=== PATIENT | female | born 1945 | race African-American/Black ===

== ENCOUNTER 2017-03-09 15:48 | Emergency (ER) | payer BC ==
[~2017-03-09] VITALS: Ht 162.6 cm; Wt 95.3 kg
[2017-03-09] MEDS ORDERED: INSU100C SQ (16:00)
[2017-03-09] MEDS ORDERED: ASPI-482 PO (16:00)
[2017-03-09] MEDS ORDERED: INSU100I11 SQ (16:00)
[2017-03-09] MEDS ORDERED: INSU100I13 SQ (16:00)
[2017-03-09 18:40] LABS: BASO % 1 % (0-3); EOS % 3 % (0-3); HEMATOCRIT 35.2 % (36.0-47.0); HEMOGLOBIN 11.5 g/dL (12.0-15.5); LYMPH # 2.3 x10^3/uL (1.0-4.8); LYMPH % 35 % (24-48); MEAN CORPUSCULAR HEMOGLOBIN 31 pg (25-35); MEAN CORPUSCULAR HGB CONC 33 g/dL (31-37); MEAN CORPUSCULAR VOLUME 95 fL (79-100); MONO % 9 % (0-9); NEUT % 54 % (31-73); PLATELET COUNT 188 x10^3/uL (140-400); RED BLOOD COUNT 3.72 x10^6/uL (3.50-5.40); RED CELL DISTRIBUTION WIDTH 13.7 % (11.5-14.5); WHITE BLOOD COUNT 6.6 x10^3/uL (4.0-11.0)
[2017-03-09 18:50] LABS: CALCIUM 9.1 mg/dL (8.5-10.1); CREATININE 1.8 mg/dL (0.6-1.0); GFR 33.8; POTASSIUM 4.4 mmol/L (3.5-5.1)
[2017-03-09 18:52] VITALS: BP 224/107
--- NOTE | 2017-03-09 19:33 | PHYS DOC ---
Past Medical History Past Medical History: Diabetes-Type II, Hypertension, Other Additional Past Medical Histor: prolapsed bladder Past Surgical History: Cholecystectomy, Other Additional Past Surgical Histo: rt foot surgery,rt femur fx with shant Alcohol Use: None Drug Use: None Adult General Chief Complaint Chief Complaint: VAGINAL PROBLEM HPI HPI 71-year-old female who states she had an episode of vaginal bleeding today that she states was one episode noted earlier today. Patient denies any pain. She states she noticed it while she was urinating. She is being currently evaluated for a prolapsed bladder by her drop board man at . She currently states the bleeding has resolved. She denies any dysuria or hematuria. She denies any fever or chills. She denies any abdominal pain. She denies any nausea or vomiting. Review of Systems Review of Systems Constitutional: Denies fever or chills [] Eyes: Denies change in visual acuity, redness, or eye pain [] HENT: Denies nasal congestion or sore throat [] Respiratory: Denies cough or shortness of breath [] Cardiovascular: No additional information not addressed in HPI [] GI: Denies abdominal pain, nausea, vomiting, bloody stools or diarrhea [] : Denies dysuria or hematuria [] Musculoskeletal: Denies back pain or joint pain [] Integument: Denies rash or skin lesions [] Neurologic: Denies headache, focal weakness or sensory changes [] Endocrine: Denies polyuria or polydipsia [] Allergies Allergies Allergies Coded Allergies Type Severity Reaction Last Updated Verified No Known Drug Allergies 03/09/17 No Physical Exam Physical Exam Constitutional: Well developed, well nourished, no acute distress, non-toxic appearance. [] HENT: Normocephalic, atraumatic, bilateral external ears normal, oropharynx moist, no oral exudates, nose normal. [] Eyes: PERRLA, EOMI, conjunctiva normal, no discharge. [] Neck: Normal range of motion, no tenderness, supple, no stridor. [] Cardiovascular:Heart rate regular rhythm, no murmur [] Lungs & Thorax: Bilateral breath sounds clear to auscultation [] Abdomen: Bowel sounds normal, soft, no tenderness, no masses, no pulsatile masses. [] Pelvic exam: Exam revealed a prolapsed bladder but no obvious bleeding was seen. There is no lacerations or source of bleeding that could be elicited. Skin: Warm, dry, no erythema, no rash. [] Back: No tenderness, no CVA tenderness. [] Extremities: No tenderness, no cyanosis, no clubbing, ROM intact, no edema. [] Neurologic: Alert and oriented X 3, normal motor function, normal sensory function, no focal deficits noted. [] Psychologic: Affect normal, judgement normal, mood normal. [] Current Patient Data Vital Signs Vital Signs Date Time Temp Pulse Resp B/P Pulse Ox O2 Delivery O2 Flow Rate FiO2 03/09/17 18:52 76 224/107 98 03/09/17 16:00 98.6 16 Room Air 98.6 Lab Values Laboratory Tests Test 03/09/17 18:30 White Blood Count 6.6x10^3/uL (4.0-11.0) Red Blood Count 3.72x10^6/uL (3.50-5.40) Hemoglobin 11.5g/dL (12.0-15.5) L Hematocrit 35.2% (36.0-47.0) L Mean Corpuscular Volume 95fL (79-100) Mean Corpuscular Hemoglobin 31pg (25-35) Mean Corpuscular Hemoglobin Concent 33g/dL (31-37) Red Cell Distribution Width 13.7% (11.5-14.5) Platelet Count 188x10^3/uL (140-400) Neutrophils (%) (Auto) 54% (31-73) Lymphocytes (%) (Auto) 35% (24-48) Monocytes (%) (Auto) 9% (0-9) Eosinophils (%) (Auto) 3% (0-3) Basophils (%) (Auto) 1% (0-3) Neutrophils # (Auto) 3.5x10^3uL (1.8-7.7) Lymphocytes # (Auto) 2.3x10^3/uL (1.0-4.8) Monocytes # (Auto) 0.6x10^3/uL (0.0-1.1) Eosinophils # (Auto) 0.2x10^3/uL (0.0-0.7) Basophils # (Auto) 0.0x10^3/uL (0.0-0.2) Sodium Level 142mmol/L (136-145) Potassium Level 4.4mmol/L (3.5-5.1) Chloride Level 107mmol/L (98-107) Carbon Dioxide Level 25mmol/L (21-32) Anion Gap 10 (6-14) Blood Urea Nitrogen 36mg/dL (7-20) H Creatinine 1.8mg/dL (0.6-1.0) H Estimated GFR (Cockcroft-Gault) 33.8 Glucose Level 218mg/dL (70-99) H Calcium Level 9.1mg/dL (8.5-10.1) Laboratory Tests 03/09/17 18:30 Laboratory Tests 03/09/17 18:30 EKG EKG [] Radiology/Procedures Radiology/Procedures [] Course & Med Decision Making Course & Med Decision Making Pertinent Labs and Imaging studies reviewed. (See chart for details) 71-year-old female with abnormal uterine bleeding had a pelvic exam that did not reveal any acute abnormalities. Her laboratory workup was unremarkable. I' ll be discharging her home with close follow-up for her episode of bleeding with her drop board man in the next several days with strict instruction to return if the bleeding should worsen or she develops any dizziness or lightheadedness. She was very agreeable with this plan and discharged without incident. Dragon Disclaimer Dragon Disclaimer This electronic medical record was generated, in whole or in part, using a voice recognition dictation system. Departure Departure Impression: Primary Impression: Vaginal bleeding Disposition: 01 HOME, SELF-CARE Admitting Physician: Other Condition: STABLE Referrals: SEA EWING MD (PCP) Patient Instructions: Abnormal Uterine Bleeding Additional Instructions: Please follow up with your drop board man in the next 2-3 days for your bleeding. Return to the ER if you develop any worsening of your bleeding or develop any pain or shortness of breath. ANSELMO THIBODEAUX DO Mar 09, 2017 19:33
== END 2017-03-09 19:40 | disposition home or self-care (01) ==
LOC: ER 15:48
DX: N93.9 Abnormal uterine and vaginal bleeding, unspecified (principal); N81.10 Cystocele, unspecified; E11.9 Type 2 diabetes mellitus without complications; I10 Essential (primary) hypertension; Z90.49 Acquired absence of other specified parts of digestive tract
CPT/HCPCS: 36415; 80048; 85027; 99284

== ENCOUNTER → 2017-05-12 | Outpatient (CLI) | payer BC ==
[~2017-05-12] MED LIST: ASPI-482 PO; INSU100C SQ; INSU100I11 SQ; INSU100I13 SQ; LOSA25TA4 PO; METO-269 PO; PRAV40TA2 PO
[2017-05-12 15:18] LABS: BASO % 0 % (0-3); EOS % 2 % (0-3); HEMATOCRIT 33.1 % (36.0-47.0); HEMOGLOBIN 11.3 g/dL (12.0-15.5); LYMPH # 2.8 x10^3/uL (1.0-4.8); LYMPH % 34 % (24-48); MEAN CORPUSCULAR HEMOGLOBIN 31 pg (25-35); MEAN CORPUSCULAR HGB CONC 34 g/dL (31-37); MEAN CORPUSCULAR VOLUME 92 fL (79-100); MONO % 9 % (0-9); NEUT % 54 % (31-73); PLATELET COUNT 181 x10^3/uL (140-400); RED BLOOD COUNT 3.59 x10^6/uL (3.50-5.40); RED CELL DISTRIBUTION WIDTH 13.2 % (11.5-14.5); WHITE BLOOD COUNT 8.1 x10^3/uL (4.0-11.0)
[2017-05-12 15:59] LABS: ALBUMIN 3.8 g/dL (3.4-5.0); ALBUMIN/GLOBULIN RATIO 0.8 (1.0-1.7); CALCIUM 9.7 mg/dL (8.5-10.1); CREATININE 1.8 mg/dL (0.6-1.0); GFR 33.8; POTASSIUM 4.7 mmol/L (3.5-5.1); TOTAL BILIRUBIN 0.4 mg/dL (0.2-1.0); TOTAL PROTEIN 8.3 g/dL (6.4-8.2)
--- NOTE | 2017-05-12 16:18 | RAD ---
EXAM: CHEST 1 VIEW History: Preop COMPARISON: None available. TECHNIQUE: Single portable radiograph of the chest FINDINGS: The cardiac silhouette is unremarkable. The lungs are clear bilaterally. The costophrenic sulci are clear and well demarcated. Right upper quadrant abdomen surgical clips are identified. IMPRESSION: No radiographic evidence of an acute cardiopulmonary process.
--- NOTE | 2017-05-13 12:12 | EKG ---
[facility] [address] [place] [address] Test Date: 2017-05-12 Test Time: 15:26:13 Pat Name: IOANA LI Department: Room: Gender: F Tile Installer: TV : 1945 Requested By: CALI MANUEL Order Number: [id number] Reading MD: Measurements Intervals [place] Rate: 60 P: 35 MT: 160 QRS: -3 QRSD: 128 T: 64 QT: 436 QTc: 440 Interpretive Statements SINUS RHYTHM LEFTWARD AXIS NON SPECIFIC INTRAVENTRICULAR BLOCK ABNORMAL ECG RI6.01 No previous ECG available for comparison
== END | disposition home or self-care (01) ==
LOC: SURGPAT 14:55
PROVIDERS: ATTEND Obstetrics & Gynecology
DX: Z01.818 Encounter for other preprocedural examination (principal)
CPT/HCPCS: 36415; 71020; 80053; 83036; 85027; 93005

== ENCOUNTER 2017-06-22 05:49 | Observation (INO) | payer BC ==
[~2017-06-22] VITALS: Ht 167.6 cm; Wt 95.4 kg
[2017-06-22] VITALS (9 sets, daily range): BP systolic 149–172; BP diastolic 64–75
[2017-06-22] MEDS ORDERED: HYDROmorphone 2 MG/ML VIAL IV PRN (07:00)
[2017-06-22] MEDS ORDERED: MORPHINE SULFATE 2 MG/ML DISP.SYRIN. IV PRN ×2 (07:00→10:15)
[2017-06-22] MEDS ORDERED: fentaNYL PF VIAL 100 MCG/2 ML VIAL IV PRN ×2 (07:00)
[2017-06-22] MEDS ORDERED: LIDOCAINE 1% 1 ML SYRINGE. ID PRN (07:00)
[2017-06-22] MEDS ORDERED: IV RINGERS,LACTATED 1000ML 1,000 ML IV SCH (07:00)
[2017-06-22] MEDS ORDERED: ONDANSETRON PF 4 MG/2 ML VIAL. IV PRN ×2 (07:00→10:15)
[2017-06-22] MEDS ORDERED: PROCHLORPERAZINE 10 MG/2 ML VIAL. IV PRN (07:00)
[2017-06-22] MEDS ORDERED: LIDOCAINE 2% PF Vial for OR 5 ML VIAL. ONE (07:03)
[2017-06-22] MEDS ORDERED: DEXAMETHASONE SOD PHOS 20 MG/5 ML VIAL. ONE (07:04)
[2017-06-22] MEDS ORDERED: PROPOFOL 20 ML IV ONE (07:04)
[2017-06-22] MEDS ORDERED: ONDANSETRON PF 4 MG/2 ML VIAL. ONE (07:04)
[2017-06-22] MEDS ORDERED: FAMOTIDINE 20 MG/2 ML VIAL ONE (07:04)
[2017-06-22] MEDS ORDERED: KETOROLAC 60 MG/2 ML INJ FOR OR. ONE (07:04)
[2017-06-22] MEDS ORDERED: fentaNYL PF VIAL 100 MCG/2 ML VIAL ONE ×3 (07:05→10:11)
[2017-06-22] MEDS ORDERED: MIDAZOLAM HCL/PF 2 MG/2 ML VIAL. ONE (07:05)
[2017-06-22] MEDS ORDERED: ROCURONIUM 100 MG/10 ML VIAL. ONE (07:05)
[2017-06-22] MEDS ORDERED: BUPIVAC MPF-EPI 0.5%-1:200000 30 ML VIAL. ONE ×3 (07:38→07:43)
[2017-06-22] MEDS ORDERED: 0.9 % SODIUM CHLORIDE 50 ML VIAL. IJ ONE ×3 (07:38→09:05)
[2017-06-22 08:16] LABS: BASO % 0 % (0-3); EOS % 1 % (0-3); HEMATOCRIT 31.7 % (36.0-47.0); HEMOGLOBIN 10.5 g/dL (12.0-15.5); LYMPH # 1.8 x10^3/uL (1.0-4.8); LYMPH % 26 % (24-48); MEAN CORPUSCULAR HEMOGLOBIN 31 pg (25-35); MEAN CORPUSCULAR HGB CONC 33 g/dL (31-37); MEAN CORPUSCULAR VOLUME 95 fL (79-100); MONO % 8 % (0-9); NEUT % 64 % (31-73); PLATELET COUNT 137 x10^3/uL (140-400); RED BLOOD COUNT 3.34 x10^6/uL (3.50-5.40); RED CELL DISTRIBUTION WIDTH 13.4 % (11.5-14.5)
[2017-06-22 08:21] LABS: CALCIUM 8.5 mg/dL (8.5-10.1); CREATININE 1.5 mg/dL (0.6-1.0); GFR 41.7
[2017-06-22] MEDS ORDERED: LOSARTAN POTASSIUM 25 MG TABLET. PO SCH (09:00)
[2017-06-22] MEDS ORDERED: NEOSTIGMINE 10 MG/10 ML VIAL. ONE (09:06)
[2017-06-22] MEDS ORDERED: GLYCOPYRROLATE 1 MG/5 ML VIAL. ONE (09:06)
[2017-06-22] MEDS ORDERED: MAG HYDROX/ALUMINUM HYD/SIMETH 30 ML ORAL.SUSP PO PRN (10:15)
[2017-06-22] MEDS ORDERED: HYDROcodone/APAP 5/325MG 1 TAB TABLET PO PRN (10:15)
[2017-06-22] MEDS ORDERED: LACTULOSE 20 GM/30 ML SOLUTION. PO PRN (10:15)
[2017-06-22] MEDS ORDERED: CALCIUM CARBONATE 500 MG TAB.CHEW PO PRN (10:15)
[2017-06-22] MEDS ORDERED: 0.9 % SODIUM CHLORIDE 10 ML DISP.SYRIN. IV PRN (10:15)
[2017-06-22] MEDS ORDERED: diphenhydrAMINE 50 MG/ML VIAL IV PRN (10:15)
[2017-06-22] MEDS ORDERED: oxyCODONE/APAP 5/325 1 TAB TABLET PO PRN (10:15)
[2017-06-22] MEDS ORDERED: SIMETHICONE 80 MG TAB.CHEW PO PRN (10:15)
[2017-06-22] MEDS ORDERED: NALOXONE 0.4 MG/ML VIAL. IV PRN (10:15)
[2017-06-22] MEDS ORDERED: MAGNESIUM HYDROXIDE 2,400 MG/30 ML ORAL.SUSP. PO PRN (10:15)
[2017-06-22] MEDS ORDERED: diphenhydrAMINE HCL 25 MG CAPSULE PO PRN (10:15)
[2017-06-22] MEDS ORDERED: ZOLPIDEM 5 MG TABLET. PO PRN (10:15)
[2017-06-22] MEDS ORDERED: DESFLURANE > 120 MINUTES IH ONE (10:18)
--- NOTE | 2017-06-22 10:31 | PDOC ---
BRIEF OPERATIVE NOTE Date: Jun 22, 2017 Pre-Op Diagnosis complete pelvic organ prolapse, postmenopausal vaginal bleeding Post-Op Diagnosis same Procedure Performed LAVH/BSO/ Anterior & posterior repairs Surgeon Dr. Halle Whitaker Jewelry Setter Dr. Krupa Real Anesthesiologist Dr. Morales Anesthesia Type: General Blood Loss 50cc IV Fluid 1L Urine Output 275cc clear via srivastava catheter Specimens Obtained cervix, uterus, bilateral tubes and ovaries Findings complete pelvic organ prolapse, small normal appearing uterus, bilateral tubes and ovaries, no significant pelvic adhesive disease, some omental adhesions in RUQ where choley scar was Complications none OPerative Note [id number] HALLE WHITAKER MD Jun 22, 2017 10:31
[2017-06-22] MEDS: INSULIN ASPART 300 UNITS/3 ML INSULN.PEN SQ SCH (18:22)
[2017-06-22] MEDS ORDERED: INSULIN DETEMIR 300 UNITS/3 ML INSULN.PEN. SQ SCH (21:00)
[2017-06-22] MEDS ORDERED: METOPROLOL SUCC 24HR ER 100 MG TAB.ER.24H. PO SCH (21:00)
--- NOTE | 2017-06-22 23:53 | OP ---
DATE OF SURGERY: 06/22/2017 PREOPERATIVE DIAGNOSIS: Complete pelvic organ prolapse with postmenopausal bleeding. POSTOPERATIVE DIAGNOSIS: Complete pelvic organ prolapse with postmenopausal bleeding. PROCEDURES: Laparoscopic-assisted vaginal hysterectomy, bilateral salpingo-oophorectomy, anterior and posterior colporrhaphy. SURGEON: Cali Whitaker MD and Krupa Real MD ANESTHESIOLOGIST: Dr. Caputo. ANESTHESIA: General endotracheal. ESTIMATED BLOOD LOSS: 50 mL. URINE OUTPUT: 275 mL clear via Jett catheter. IV FLUIDS: 1 liter of crystalloid. SPECIMEN REMOVED: Cervix, uterus, bilateral tubes and ovaries and some anterior and posterior vaginal mucosa. FINDINGS: Complete pelvic organ prolapse with stage IV cystocele and uterine procidentia as well as a third-degree rectocele, but she had a normal small uterus, bilateral tubes and ovaries. No significant pelvic adhesive disease and some omental adhesions in the right upper quadrant where her open cholecystectomy scar was. COMPLICATIONS: None. DESCRIPTION OF PROCEDURE: This patient was taken to the operating room where general anesthesia was placed. The patient was placed in a dorsal lithotomy position in [facility]. The patient's abdomen and vagina were prepped and draped in the normal sterile fashion and a Jett catheter was inserted under sterile technique. After a time-out was performed, a single tooth tenaculum was placed on the anterior lip of the cervix. It was taking out of the vagina. A 10 mL of local was placed circumferentially around the cervix for both hemodissection and hemostatic purposes later. The Valtchev uterine manipulator was placed through the endocervical os, locked on the single tooth tenaculum and then it was pushed in the vagina. After this, all top gloves were discarded and changed and attention was turned to the abdomen. A small infraumbilical skin incision was made with the scalpel. A curved Nicole was used to dissect through the subcuticular layer to the fascia. The 5 mm Visiport was used to directly enter the abdominal cavity. Opening patient pressure was 2-3 mmHg. Carbon dioxide gas was used to then appropriately insufflate the abdominal cavity to maintain a pressure of 15 mmHg. The patient was placed in Trendelenburg position. Right and left lower quadrant 5 mm disposable Ethicon atraumatic ports were placed under direct visualization after transilluminating the abdomen, making a small incision and going through an area clear of any vessels. This was all done under direct visualization without difficulty. Initial inspection revealed the omental adhesions in the right upper quadrant, normal small uterus, bilateral tubes and ovaries. No significant pelvic adhesive disease, so the LigaSure Advance was used to cauterize and cut the left round ligament and it was cauterized and cut in a stepwise fashion, creating a window in the mesosalpinx, going down and making the bladder flap sharply anteriorly elevating the left tube and ovary, finding the ureter coursing low, staying high under the ovary on the infundibulopelvic ligament, cauterizing and cutting it as well and going down and getting the uterine vessels on the left side after making sure the bladder was down. This was done exactly the same on the right first starting at the round ligament, cauterizing and cutting it, creating that window in the mesosalpinx, going down and further meeting that bladder flap and making sure it was down. All the while using the Valtchev to make sure the uterus was pushed in an up and not letting it come out vaginally. Again, elevating the right tube and ovary finding the ureter coursing low and watching it peristalsing, staying high on the infundibulopelvic ligament, taking the tubes and ovaries. Again, going down skeletonizing and getting the uterine vessels on this side as well. Then, crossing contralaterally and staying hugging the cervix, going vertical, going through the cardinal and broad ligaments down to the level of the uterosacral ligaments bilaterally. Once this was done, all instruments were removed from the abdomen and attention was turned vaginally. The single tooth and Valtchev were removed. A short-weighted speculum was placed in the patient's vagina. Thyroid Johana clamps were placed on the anterior and posterior lips of the cervix respectively and a scalpel was used to make a circumferential incision in the cervix. An open Ray-Diego 4 x 4 was used to gently push up the anterior bladder peritoneum and the anterior cul-de-sac was bluntly and sharply entered. Once this was done, the 4 x 4 was removed and the curved Nhung was placed in the anterior cul-de-sac. The cervix was elevated and the posterior cul-de-sac was sharply entered with the Lane scissors and pickups with teeth. Once this was done, a #0 Vicryl suture was used to secure the posterior peritoneum to the vaginal cuff and it was tagged with a curved Nicole clamp, the needle was cut and passed off and it was tagged. The short weighted speculum was removed and replaced with the long-weighted Cee speculum. Curved Kayce clamps x 2 were placed on the patient's left uterosacral ligament. They were doubly clamped with curved Heaneys, cut with Lane scissors and suture ligated x 2 with #0 Vicryl. The second one was taken through the vaginal cuff securing the uterosacral ligament to the vaginal cuff and was tagged with a straight Nicole clamp and the needle was cut and passed off. This was done exactly the same on the patient's right side, double clamping the uterosacrals with curved Heaneys, cutting with Lane scissors and suture ligating x 2 with #0 Vicryl, again taking the second one through the vaginal cuff securing uterosacral ligament to vaginal cuff, tying it, tagging it with a straight Nicole clamp and cutting the needle off. At this point, the remaining pedicle could easily be delineated with my finger. The vaginal LigaSure Max was used to cauterize the remaining pedicle on both sides. Cervix, uterus, bilateral tubes and ovaries were delivered in total and passed off for permanent pathology. The anterior bladder peritoneum was grasped with an Allis. The sponge stick was used to examine all the pedicles and 2-0 Vicryl was taken through the anterior bladder peritoneum, left uterosacral ligament, posterior peritoneum and right uterosacral ligament, thus closing the peritoneum in a pursestring like fashion. Once this was done, both right and left uterosacral tags were clipped. The posterior curved tag on the cuff was the only thing left. At this point, Allis clamps were placed on the anterior defect and 3 parts of injectable saline to 1 part, 0.5% Marcaine was used so, 150 mL of injectable saline to 50 mL of Marcaine was used in a dilute solution, I believe about 60 mL were used on the anterior defect. Metzenbaums were then used to open up the anterior defect with placing Allis along both sides and then sharply and bluntly using the Metzenbaum scissors to take it down at the edge and then an open Ray-Diego 4 x 4 was used to gently push up the anterior defect from the vaginal mucosa, once the edges were trimmed and the defect was released. The anterior defect reduced very nicely. A series of 10-12 interrupted sutures of 2-0 Vicryl was used to reduce the anterior defect first time just tagging them and we are using Kellys and then going back and tying them in order and using the back end of a smooth pickup just blunt and to reduce the defect and tying them to reduce the anterior defect. Large amounts of the vaginal mucosa were trimmed off on both sides with the Metzenbaum scissors and the defect was closed in an anterior to posterior running locked fashion with a 2-0 Vicryl in a running locked fashion and then the cuff was closed as well down to that posterior tag. Once this was all done and it was hemostatic, Kochers were placed at 4 o'clock and 7 o'clock at gaping introitus and another 60 mL of a dilute solution of the 3 parts injectable saline to 1 part local was used to inject the rectocele defect in the perineal body. A scalpel was used to take out a wedge-shaped myke at the perineal body and to the vagina. Metzenbaum scissors were used to then open up the posterior defect as well placing Allises along on both sides. Again, sharply and bluntly using the Metzenbaum scissors to release it from the side and then an open Ray-Diego 4 x 4 was used to gently push down the posterior defect as well. Once this was done, I believe 8 or 9, not 10 or 12, that was a shorter defect, but still is a very significant defect, was used to reduce the posterior one, again first placing the 2-0 Vicryl sutures and tagging them and then going back and tying them in order, again using the blunt end of her pickups to reduce the defect and hold it up. Once this was done, excess vaginal posterior mucosa was also trimmed and it was closed and from the cuff down to the introitus and then taken through the opening and the perineal body was reapproximated, the skin was closed in a subcutaneous fashion and back up it to anchor as the vagina like an episiotomy. Once the vagina was closed in the running locked fashion and then closing the perineal defect. Once this was done and it was hemostatic and the vagina was examined. All gloves were discarded and changed. The legs were put down and attention was turned back above for a second look. The cuff was hemostatic, the gutters were hemostatic. The right upper quadrant, there are omental adhesions, but no fluid, no blood and it was copiously irrigated and then Tisseel was placed over the pedicle, the vaginal cuff. Once this was done, the right and left lower quadrant ports were removed under direct visualization. Gas was released from the umbilical port. All 3 port sites were closed with 4-0 nylon at the level of the skin and injected with 10 mL of local. The patient is being awakened from anesthesia and I believe she has been extubated and now rolling into the recovery room in stable condition. CALI WHITAKER MD DR: YESSY/tristan JOB#: [id number] / [id number]
[2017-06-23 01:30] VITALS: BP 137/70
[2017-06-23 05:30] VITALS: BP 138/63
[2017-06-23] MEDS ORDERED: INSULIN ASPART 300 UNITS/3 ML INSULN.PEN SQ SCH (06:00)
[2017-06-23 07:01] LABS: CALCIUM 8.6 mg/dL (8.5-10.1); CREATININE 1.8 mg/dL (0.6-1.0); GFR 33.8; POTASSIUM 4.9 mmol/L (3.5-5.1)
--- NOTE | 2017-06-23 08:29 | PDOC ---
SURGICAL PROGRESS NOTE Subjective Doing well without complaints. No n/v, minimal vaginal bleeding. Tolerating regular diet without problems. Catheter just out this am so has not voided yet minimal pain Vital Signs Vital Signs Date Time Temp Pulse Resp B/P (MAP) Pulse Ox O2 Delivery O2 Flow Rate FiO2 06/23/17 05:30 98.4 81 18 138/63 (88) 97 Room Air 98.4 06/22/17 12:00 2.0 I&O Intake and Output 06/23/17 07:00 Intake Total 2210 ml Output Total 2025 ml Balance 185 ml Intake Oral 160 ml IV Total 1250 ml Other 800 ml Output Urine Total 1975 ml Estimated Blood Loss 50 ml # Bowel Movements 2 PATIENT HAS A JOHNSON: No General: Alert, Oriented X3, Cooperative, No acute distress HEENT: Atraumatic Heart: Regular rate Abdomen: Soft, No tenderness, Other (all port sites c/d/i) Extremities: No clubbing, No cyanosis, No edema, No tenderness/swelling, Other (SCDs in place) Skin: No rashes, No breakdown Neuro: Normal speech Psych/Mental Status: Mental status NL, Mood NL Labs Laboratory Tests Test 06/22/17 06:58 06/22/17 08:05 06/22/17 10:34 06/22/17 16:42 Glucose (Fingerstick) 102 mg/dL (70-99) 180 mg/dL (70-99) 259 mg/dL (70-99) White Blood Count 7.0 x10^3/uL (4.0-11.0) Red Blood Count 3.34 x10^6/uL (3.50-5.40) Hemoglobin 10.5 g/dL (12.0-15.5) Hematocrit 31.7 % (36.0-47.0) Mean Corpuscular Volume 95 fL (79-100) Mean Corpuscular Hemoglobin 31 pg (25-35) Mean Corpuscular Hemoglobin Concent 33 g/dL (31-37) Red Cell Distribution Width 13.4 % (11.5-14.5) Platelet Count 137 x10^3/uL (140-400) Neutrophils (%) (Auto) 64 % (31-73) Lymphocytes (%) (Auto) 26 % (24-48) Monocytes (%) (Auto) 8 % (0-9) Eosinophils (%) (Auto) 1 % (0-3) Basophils (%) (Auto) 0 % (0-3) Neutrophils # (Auto) 4.5 x10^3uL (1.8-7.7) Lymphocytes # (Auto) 1.8 x10^3/uL (1.0-4.8) Monocytes # (Auto) 0.6 x10^3/uL (0.0-1.1) Eosinophils # (Auto) 0.1 x10^3/uL (0.0-0.7) Basophils # (Auto) 0.0 x10^3/uL (0.0-0.2) Sodium Level 143 mmol/L (136-145) Potassium Level 5.0 mmol/L (3.5-5.1) Chloride Level 110 mmol/L (98-107) Carbon Dioxide Level 24 mmol/L (21-32) Anion Gap 9 (6-14) Blood Urea Nitrogen 26 mg/dL (7-20) Creatinine 1.5 mg/dL (0.6-1.0) Estimated GFR (Cockcroft-Gault) 41.7 Glucose Level 111 mg/dL (70-99) Calcium Level 8.5 mg/dL (8.5-10.1) Test 06/22/17 21:27 06/23/17 06:45 Glucose (Fingerstick) 192 mg/dL (70-99) Hematocrit 29.1 % (36.0-47.0) Sodium Level 141 mmol/L (136-145) Potassium Level 4.9 mmol/L (3.5-5.1) Chloride Level 107 mmol/L (98-107) Carbon Dioxide Level 28 mmol/L (21-32) Anion Gap 6 (6-14) Blood Urea Nitrogen 31 mg/dL (7-20) Creatinine 1.8 mg/dL (0.6-1.0) Estimated GFR (Cockcroft-Gault) 33.8 Glucose Level 193 mg/dL (70-99) Calcium Level 8.6 mg/dL (8.5-10.1) Laboratory Tests Test 06/22/17 10:34 06/22/17 16:42 06/22/17 21:27 06/23/17 06:45 Glucose (Fingerstick) 180 mg/dL (70-99) 259 mg/dL (70-99) 192 mg/dL (70-99) Hematocrit 29.1 % (36.0-47.0) Sodium Level 141 mmol/L (136-145) Potassium Level 4.9 mmol/L (3.5-5.1) Chloride Level 107 mmol/L (98-107) Carbon Dioxide Level 28 mmol/L (21-32) Anion Gap 6 (6-14) Blood Urea Nitrogen 31 mg/dL (7-20) Creatinine 1.8 mg/dL (0.6-1.0) Estimated GFR (Cockcroft-Gault) 33.8 Glucose Level 193 mg/dL (70-99) Calcium Level 8.6 mg/dL (8.5-10.1) I have reviewed the following labs, vitals, nursing Cardiovascular: HTN Endocrine: Diabetes Problem List POD#1 s/p LAVH/BSO with anterior and posterior repair Routine po care ambulate today, up to restroom d/c to home later today NPV x 6 weeks light/limited activity x 2 weeks NO [address] x 1 week and longer if still on narcotic pain pills Percocet written OK for OTC ibuprofen if she can take at home ok to resume her home meds including baby ASA keep scheduled follow up with me in the office in one week call or return sooner for any other questions or concerns not limited to but including pain unrelieved with pain pills, increased or unexplained vaginal bleeding or T>100.4 Problems: CALI MANUEL MD Jun 23, 2017 08:29
--- NOTE | 2017-06-23 08:35 | PDOC3 ---
Discharge Summary Visit Information Date of Admission: Jun 22, 2017 Date of Discharge: Jun 23, 2017 Final Diagnosis pelvic organ prolapse with PMB Brief Hospital Course Allergies Allergies Coded Allergies Type Severity Reaction Last Updated Verified No Known Drug Allergies 06/22/17 No Vital Signs Vital Signs Date Time Temp Pulse Resp B/P (MAP) Pulse Ox O2 Delivery O2 Flow Rate FiO2 06/23/17 05:30 98.4 81 18 138/63 (88) 97 Room Air 98.4 06/22/17 12:00 2.0 Lab Results Laboratory Tests Test 06/22/17 06:58 06/22/17 08:05 06/22/17 10:34 06/22/17 16:42 Glucose (Fingerstick) 102 mg/dL (70-99) 180 mg/dL (70-99) 259 mg/dL (70-99) White Blood Count 7.0 x10^3/uL (4.0-11.0) Red Blood Count 3.34 x10^6/uL (3.50-5.40) Hemoglobin 10.5 g/dL (12.0-15.5) Hematocrit 31.7 % (36.0-47.0) Mean Corpuscular Volume 95 fL (79-100) Mean Corpuscular Hemoglobin 31 pg (25-35) Mean Corpuscular Hemoglobin Concent 33 g/dL (31-37) Red Cell Distribution Width 13.4 % (11.5-14.5) Platelet Count 137 x10^3/uL (140-400) Neutrophils (%) (Auto) 64 % (31-73) Lymphocytes (%) (Auto) 26 % (24-48) Monocytes (%) (Auto) 8 % (0-9) Eosinophils (%) (Auto) 1 % (0-3) Basophils (%) (Auto) 0 % (0-3) Neutrophils # (Auto) 4.5 x10^3uL (1.8-7.7) Lymphocytes # (Auto) 1.8 x10^3/uL (1.0-4.8) Monocytes # (Auto) 0.6 x10^3/uL (0.0-1.1) Eosinophils # (Auto) 0.1 x10^3/uL (0.0-0.7) Basophils # (Auto) 0.0 x10^3/uL (0.0-0.2) Sodium Level 143 mmol/L (136-145) Potassium Level 5.0 mmol/L (3.5-5.1) Chloride Level 110 mmol/L (98-107) Carbon Dioxide Level 24 mmol/L (21-32) Anion Gap 9 (6-14) Blood Urea Nitrogen 26 mg/dL (7-20) Creatinine 1.5 mg/dL (0.6-1.0) Estimated GFR (Cockcroft-Gault) 41.7 Glucose Level 111 mg/dL (70-99) Calcium Level 8.5 mg/dL (8.5-10.1) Test 06/22/17 21:27 06/23/17 06:45 Glucose (Fingerstick) 192 mg/dL (70-99) Hematocrit 29.1 % (36.0-47.0) Sodium Level 141 mmol/L (136-145) Potassium Level 4.9 mmol/L (3.5-5.1) Chloride Level 107 mmol/L (98-107) Carbon Dioxide Level 28 mmol/L (21-32) Anion Gap 6 (6-14) Blood Urea Nitrogen 31 mg/dL (7-20) Creatinine 1.8 mg/dL (0.6-1.0) Estimated GFR (Cockcroft-Gault) 33.8 Glucose Level 193 mg/dL (70-99) Calcium Level 8.6 mg/dL (8.5-10.1) Laboratory Tests Test 06/22/17 10:34 06/22/17 16:42 06/22/17 21:27 06/23/17 06:45 Glucose (Fingerstick) 180 mg/dL (70-99) 259 mg/dL (70-99) 192 mg/dL (70-99) Hematocrit 29.1 % (36.0-47.0) Sodium Level 141 mmol/L (136-145) Potassium Level 4.9 mmol/L (3.5-5.1) Chloride Level 107 mmol/L (98-107) Carbon Dioxide Level 28 mmol/L (21-32) Anion Gap 6 (6-14) Blood Urea Nitrogen 31 mg/dL (7-20) Creatinine 1.8 mg/dL (0.6-1.0) Estimated GFR (Cockcroft-Gault) 33.8 Glucose Level 193 mg/dL (70-99) Calcium Level 8.6 mg/dL (8.5-10.1) Brief Hospital Course Ms. Taylor is a 71 old female who presented with complete pelvic organ prolapse. She had LAVH/BSO with anterior and posterior repairs. She has had an unremarkable postoperative course. Tolerating regular diet without n/v. She just got catheter out this am and has not urinated yet, but only been a few hours since catheter out so will ambulate and watch this today then home. Discharge Information Condition at Discharge: Improved Follow Up: Weeks Disposition/Orders: D/C to Home Scheduled Aspirin (Aspir 81), 1 TAB PO DAILY, (Reported) Insulin Glargine,Hum.rec.anlog (Lantus Solostar), 30 UNIT SQ QHS, (Reported) Insulin Lispro (Humalog), 12 UNIT SQ DAILY06, (Reported) Insulin Lispro (Humalog), 16 UNIT SQ QEVNG, (Reported) Losartan Potassium (Losartan Potassium), 25 MG PO DAILY, (Reported) Metoprolol Succinate (Toprol Xl), 1 TAB PO HS, (Reported) Pravastatin Sodium (Pravastatin Sodium), 1 TAB PO QHS, (Reported) Patient Instructions Patient Instructions POD#1 s/p LAVH/BSO with anterior and posterior repair Routine po care ambulate today, up to restroom d/c to home later today NPV x 6 weeks light/limited activity x 2 weeks NO [address] x 1 week and longer if still on narcotic pain pills Percocet written OK for OTC ibuprofen if she can take at home ok to resume her home meds including baby ASA keep scheduled follow up with me in the office in one week call or return sooner for any other questions or concerns not limited to but including pain unrelieved with pain pills, increased or unexplained vaginal bleeding or T>100.4 CALI MANUEL MD Jun 23, 2017 08:35
[2017-06-23 10:05] VITALS: BP 127/54
--- NOTE | 2017-06-23 16:02 | PATHOLOGY ---
PATHOLOGY REPORT * * * * * * * * FINAL DIAGNOSIS: Uterus and attached bilateral fallopian tubes and ovaries, laparoscopic-assisted vaginal hysterectomy with bilateral salpingo-oophorectomy: - Hypercornification of exocervix consistent with uterine prolapse. - Mild chronic cervicitis with squamous metaplasia. - MODERATE DYSPLASIA (ITALO II) WITHIN ENDOCERVIX, FOCAL. - Nabothian cysts of cervix, multiple. - Atrophic endometrium. - Adenomyosis, uterine corpus, subbasal, focal. - Leiomyoma, uterine corpus, intramural, measuring 1.2 cm. - Involutional changes of bilateral fallopian tubes and ovaries. COMMENT: There is no evidence of malignancy. (JPM:mgr; 06/23/2017) REPORT ELECTRONICALLY SIGNED BY: Castillo Iyer M.D. DATE/TIME: 06/23/2017 16:01 * * * * * * * * GROSS PATHOLOGY: The specimen is received in formalin, labeled, "Ioana Li-cervix, uterus, bilateral tubes and ovaries". Received is an intact uterus with attached cervix and attached bilateral adnexa having a total weight of 81 grams and measuring 8.5 x 4.2 x 4.0 cm. The serosal surface displays a smooth, pale matta-pink appearance. The ectocervix measures 3.7 x 3.2 cm and displays a wrinkled, pale pink-matta appearance. The os is round and measures 0.3 cm. Bisecting the uterus reveals an unremarkable transformation zone with a 4.2 cm in length endocervix. The endometrial cavity is an inverted triangle measuring 2.2 x 2.0 cm. The endometrium displays a spongy, pale pink-matta appearance and measures 0.1 cm in thickness. Sectioning through the myometrium reveals a pink-matta fascicular cut surface with a myometrial thickness of 1.5 cm. A single firm, ovoid shaped pale white nodule is present in the posterior half of the myometrium measuring 1.2 cm. [employer] sections are submitted as follows: A1-anterior cervix; A2-posterior cervix; A3-anterior endomyometrium; A4-posterior endomyometrium with myometrial nodule. The right tube and ovary weigh 4 grams. The ovary measures 2.1 x 1.0 x 0.7 cm. The external surface is smooth, shiny and pale yellow-pink. Sectioning through the ovary reveals a variegated pale pink-yellow cut surface with no gross abnormalities identified. The fallopian tube measures 2.5 cm in length and up to 0.4 cm in diameter. The distal portion is fimbriated. The serosal surface displays a wrinkled, pale pink-matta appearance. Sectioning reveals a patent lumen. Scrum Project Manager sections are submitted as follows: A5-right tube and ovary. The left tube and ovary weigh 5 grams. The ovary measures 2.7 x 1.5 x 0.8 cm. The external surface is smooth, shiny and pale yellow-matta. Sectioning reveals a single clear fluid-filled cyst measuring 0.2 cm. No evidence of papillary excrescences are identified. The remainder of the cut surface displays a variegated white-matta pale yellow appearance with no additional gross abnormalities. The fallopian tube measures 5.2 cm in length and up to 0.4 cm in diameter. The distal portion is fimbriated. The serosal surface displays a wrinkled, pale pink appearance. Sectioning reveals a patent lumen. Scrum Project Manager sections are submitted as follows: A6-left tube and ovary. (SNA:rebecca; 06/22/2017) INITIAL CPT CODE(S): A; 25942 Professional services performed by [facility] [facility] [place] [address] Technical services performed by [employer] at [address] [place] [address], [facility] [address] [address]. SPECIMEN(S) RECEIVED: A.Uterus, cervix, bilateral tubes and ovaries CLINICAL HISTORY: Postmenopausal bleeding, prolapse PATIENT: IOANA LI /AGE: 10 1945 (Age: 71) PATIENT #: [id number] ALT CASE #: SPECIMEN COLLECTION DATE: 06/22/2017 SPECIMEN RECEIVED DATE: 06/22/2017 [facility] - [id number] [place] [address] - PHONE: [phone] * * * END OF REPORT * * *
[2017-06-23] MEDS: INSULIN ASPART 300 UNITS/3 ML INSULN.PEN SQ SCH (17:23)
[2017-06-23 18:00] VITALS: BP 122/51
== END 2017-06-23 18:55 | disposition home or self-care (01) ==
LOC: SURG 05:49 → 3 NORTH 10:17
PROVIDERS: ADMIT Obstetrics & Gynecology; ATTEND Obstetrics & Gynecology
DX: N81.3 Complete uterovaginal prolapse (principal); N95.0 Postmenopausal bleeding; K66.0 Peritoneal adhesions (postprocedural) (postinfection); E11.9 Type 2 diabetes mellitus without complications; I10 Essential (primary) hypertension
CPT/HCPCS: 36415; 57260; 58552; 80048; 82962; 85014; 85027; 86850; 86900; 86901; 88307; 96372; 96374; C1769; G0378; G0379; J0690; J0780; J1100; J1815; J2001; J2250; J2405; J2704; J2710; J3010; J3490; J7030; J7120; S0028; J1885

== ENCOUNTER → 2021-02-21 | Outpatient (CLI) | payer MEDICARE ==
[~2021-02-21] MED LIST changes: -LOSA25TA4 PO; +LOSA25TA54 PO
--- NOTE | 2021-02-21 16:34 | RAD ---
Right Lower Extremity Venous Doppler: Reason for examination: Right lower extremity swelling. The right lower extremity venous system was evaluated from the common femoral and greater saphenous v eins distally to the calf veins with kamara scale imaging, color flow imaging and spectral analysis. Th e posterior tibial vein was difficult to visualize due to the swelling. There is normal blood flow without deep venous thrombosis in the visualized venous structures. There is normal response of the venous system to compression and augmentation. Impression: No deep venous thrombosis in the visualized right lower extremity venous system. Electronically signed by: Bhavana Centeno MD (02/21/2021 4:32 PM) [facility]
== END ==
LOC: US 15:43
PROVIDERS: ATTEND Internal Medicine
DX: R22.41 Localized swelling, mass and lump, right lower limb (principal)
CPT/HCPCS: 93971